=== PATIENT | male | born 1975 | race Hispanic/Latino ===

== ENCOUNTER 2016-09-22 16:21 | Emergency (ER) | payer OTHER ==
[~2016-09-22] VITALS: Ht 182.9 cm; Wt 120.2 kg
--- NOTE | 2016-09-22 17:53 | ED SKIN/ALLERGY COMPLAINT ---
History of Present Illness General Chief Complaint: Skin Rash/ Abcess Stated Complaint: CYST ON R SIDE OF BACK Source: patient Exam Limitations: no limitations Vital Signs & Intake/Output Vital Signs & Intake/Output ED Intake and Output 09/23 0000 09/22 1200 Intake Total Output Total Balance Patient 265 lb Weight Allergies Coded Allergies: No Known Allergies (09/22/16) Reconcile Medications Cephalexin (Keflex) 500 MG CAPSULE 1 CAP PO TID ABSCESS Triage Note: TRIAGE: PT TO ER C/C ?CYST TO RT TRUNK AREA. ONSET FEW DAYS AGO. HAS BEEN TRYING HOT COMPRESSES. Triage Nurses Notes Reviewed? yes HPI: This patient is a 41-year-old male who presented to the emergency department today for evaluation of a cyst to his back. The patient reported that he first noticed this, "months ago." However, he reported that it was small and not causing him any discomfort. Over the last 2 days he noticed that it had gotten bigger and painful. He reported that the pain gets up to a 7 out of 10, is throbbing, nonradiating. Palpation to the area makes the pain worse. The patient denied any fevers, chills, chest pain, difficulty breathing, or abdominal pain. (VINICIUS FELIPE PA-C) Past History Travel History Traveled to [place] past 21 day No Medical History Any Pertinent Medical History? 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 No (VINICIUS FELIPE PA-C) Review of Systems Review of Systems Constitutional: Reports: no symptoms. EENTM: Reports: no symptoms. Respiratory: Reports: no symptoms. Cardiovascular: Reports: no symptoms. GI: Reports: no symptoms. Musculoskeletal: Reports: no symptoms. Skin: Reports: see HPI. Neurological/Psychological: Reports: no symptoms. All Other Systems: Reviewed and Negative (VINICIUS FELIPE PA-C) Physical Exam Physical Exam General Appearance: well developed/nourished, no apparent distress, alert, awake Comments: Well-developed well-nourished person in no acute distress HEENT: Head normocephalic, moist mucous membranes Neck: Supple, no lymphadenopathy Back: Normal gait Respiratory: No respiratory distress. Speaking in full sentences Extremities: No edema, full range of motion Neuro: Alert and oriented x3 Psych: Mood affect normal, normal memory normal judgment. Skin: Warm and dry, no rash on exposed skin. Approximately 3 cm in greatest diameter area of erythema which is raised with areas of fluctuance and areas of induration. Mild tenderness to palpation. No drainage. (VINICIUS FELIPE PA-C) Progress Differential Diagnosis: abscess/cellulitis, contact dermatitis, drug reaction Plan of Care: Orders Procedure Date/time Status TRUNK AREA CULTURE 09/22 1814 Active Microbiology 09/22 1814 TRUNK: Culture & Sensitivity - RES 09/22 1814 TRUNK: Gram Stain - RES Departure Departure Disposition: HOME OR SELF CARE Condition: Stable Clinical Impression Primary Impression: Abscess Referrals: PATIENT HAS NO PRIMARY CARE DR (PCP/Family) Additional Instructions: Keep the wound site clean and dry. You may reapply bandage as needed. Take antibiotic as prescribed and for the full duration. Return for any worsening symptoms or concerns. Departure Forms: Customer Survey General Discharge Information Prescriptions: Current Visit Scripts Cephalexin (Keflex) 1 CAP PO TID #15 CAP (VINICIUS FELIPE PA-C) PA/CONTACT [employer] Co-Sign Statement Statement: ED Attending supervision documentation- [] I saw and evaluated the patient. I have also reviewed all the pertinent lab results and diagnostic results. I agree with the findings and the plan of care as documented in the PA's/CONTACT [employer]'s documentation. [X] I have reviewed the ED Record and agree with the PA's/CONTACT [employer]'s documentation. [] Additions or exceptions (if any) to the PAs/CONTACT [employer]'s note and plan are summarized below: [] (ALFONSO HERNANDEZ,CHRISTINA) Procedures Incision and Drainage Site: POSTERIOR TRUNK Blade Size: 11 I & D Procedure: Yes: betadine prep, sterile drapes applied, sterile dressing applied. No: wick placed. Progress: Serosanguinous and purulent discharge expressed from the abscess. Patient tolerated the procedure well. (VINICIUS FELIPE PA-C)
[2016-09-22] MEDS ORDERED: KEFLEX500 M1 PO (18:14)
[2016-09-22 18:23] VITALS: BP 144/80
== END 2016-09-22 18:24 ==
LOC: ERH 16:21
DX: L02.212 Cutaneous abscess of back [any part, except buttock and flank] (principal)
CPT/HCPCS: 87070